=== PATIENT | male | born 1945 | race Two or more races ===

== ENCOUNTER → 2017-11-14 | Outpatient (CLI) | payer MEDICARE, BC | END | disposition home or self-care (01) | LOC: CFH 07:18 | PROVIDERS: ATTEND Family Medicine | DX: K44.9 Diaphragmatic hernia without obstruction or gangrene (principal); K21.9 Gastro-esophageal reflux disease without esophagitis; K76.89 Other specified diseases of liver | CPT/HCPCS: 74220; 76700 ==

== ENCOUNTER → 2018-03-07 | Outpatient (CLI) | payer MEDICARE, BC | END | disposition home or self-care (01) | LOC: RAD 09:42 | PROVIDERS: ATTEND Family Medicine | DX: R13.10 Dysphagia, unspecified (principal) | CPT/HCPCS: 74230 ==

== ENCOUNTER → 2019-04-10 | Outpatient (CLI) | payer MEDICARE, BC | END | disposition home or self-care (01) | LOC: CFH 14:33 | PROVIDERS: ATTEND Internal Medicine Critical Care Medicine | DX: J92.9 Pleural plaque without asbestos (principal); J47.9 Bronchiectasis, uncomplicated; J84.9 Interstitial pulmonary disease, unspecified; M41.54 Other secondary scoliosis, thoracic region | CPT/HCPCS: 71250 ==